=== PATIENT | female | born 1980 | race Caucasian/White ===

== ENCOUNTER 2016-08-24 12:04 | Emergency (ER) | payer BC | END 2016-08-24 15:30 | disposition left against medical advice (07) | LOC: D.ER 12:04 | DX: I10 Essential (primary) hypertension (principal) ==

== ENCOUNTER 2016-08-24 16:33 | Emergency (ER) | payer BC | END 2016-08-24 22:46 | disposition home or self-care (01) | LOC: D.ER 16:33 | DX: M54.12 Radiculopathy, cervical region (principal); I10 Essential (primary) hypertension; F17.200 Nicotine dependence, unspecified, uncomplicated ==

== ENCOUNTER 2016-09-07 18:00 | Emergency (ER) | payer BC | END 2016-09-07 18:13 | disposition left against medical advice (07) | LOC: D.ER 18:00 | DX: M54.2 Cervicalgia (principal); M54.12 Radiculopathy, cervical region; I10 Essential (primary) hypertension ==

== ENCOUNTER 2016-09-08 08:17 | Emergency (ER) | payer BC | END 2016-09-08 11:00 | disposition home or self-care (01) | LOC: D.ER 08:17 | DX: M54.12 Radiculopathy, cervical region (principal); M62.838 Other muscle spasm; I10 Essential (primary) hypertension; F17.200 Nicotine dependence, unspecified, uncomplicated ==

== ENCOUNTER 2016-09-24 13:08 | Emergency (ER) | payer BC | END 2016-09-24 17:15 | disposition left against medical advice (07) | LOC: D.ER 13:08 | DX: M25.562 Pain in left knee (principal) ==

== ENCOUNTER 2016-10-02 08:27 | Emergency (ER) | payer BC | END 2016-10-02 10:00 | disposition home or self-care (01) | LOC: D.ER 08:27 | DX: G89.29 Other chronic pain (principal); F17.200 Nicotine dependence, unspecified, uncomplicated ==

== ENCOUNTER 2016-12-08 08:55 | Emergency (ER) | payer BC ==
[2016-12-08 11:26] LABS: APPEARANCE HAZY (CLEAR); BILIRUBIN NEGATIVE (NEGATIVE); COLOR YELLOW (YELLOW); GLUCOSE NEGATIVE (NEGATIVE); KETONE NEGATIVE (NEGATIVE); LEUKOCYTE ESTERASE NEGATIVE (NEGATIVE); NITRITE NEGATIVE (NEGATIVE); PROTEIN NEGATIVE (NEGATIVE); UROBILINOGEN NORMAL (NORMAL)
[2016-12-08 11:30] LABS: UDS - AMPHET NEGATIVE QUAL (NEGATIVE); UDS - BARB NEGATIVE QUAL (NEGATIVE); UDS - BENZO NEGATIVE QUAL (NEGATIVE); UDS - COCAINE NEGATIVE QUAL (NEGATIVE); UDS - METH NEGATIVE QUAL (NEGATIVE); UDS - OPIATE POSITIVE QUAL (NEGATIVE); UDS - PCP NEGATIVE QUAL (NEGATIVE); UDS - THC NEGATIVE QUAL (NEGATIVE)
== END 2016-12-08 12:15 | disposition home or self-care (01) ==
LOC: D.ER 08:55
PROVIDERS: Physician Assistant
DX: J01.90 Acute sinusitis, unspecified (principal); S29.012A Strain of muscle and tendon of back wall of thorax, initial encounter; X58.XXXA Exposure to other specified factors, initial encounter; Y93.89 Activity, other specified; Y92.89 Other specified places as the place of occurrence of the external cause; F17.200 Nicotine dependence, unspecified, uncomplicated; M54.12 Radiculopathy, cervical region; I10 Essential (primary) hypertension

== ENCOUNTER 2017-01-06 13:32 | Emergency (ER) | payer BC ==
[2017-01-06 14:33] LABS: BASOPHILS 0.2 % (0-2); EOSINOPHILS 0.9 % (0-7); HEMATOCRIT 43.7 % (36.0-48.0); HEMOGLOBIN 14.5 g/dL (12-16); IMMATURE GRANULOCYTES 0.1 % (0-5); LYMPHOCYTES 21.9 % (15-50); MCH 30.5 pg (26.0-34.0); MCHC 33.2 g/dL (31.0-37.0); MCV 91.8 fL (80.0-100.0); MEAN PLATELET VOLUME 10.5 fL (7.4-10.4); MONOCYTES 2.8 % (2-11); NEUTROPHILS 74.1 % (40-80); PLATELET COUNT 292 10x3/uL (130-400); RBC 4.76 10x6/uL (4.00-5.40); RDW 13.3 % (11.5-14.5); WBC 8.1 10x3/uL (4.8-10.8)
[2017-01-06 15:23] LABS: HCG SERUM NEGATIVE (NEGATIVE)
== END 2017-01-06 15:20 | disposition left against medical advice (07) ==
LOC: D.ER 13:32
PROVIDERS: Emergency Medicine
DX: N93.9 Abnormal uterine and vaginal bleeding, unspecified (principal)

== ENCOUNTER 2017-01-07 10:16 | Emergency (ER) | payer BC ==
[2017-01-07 11:51] LABS: BASOPHILS 0.4 % (0-2); EOSINOPHILS 1.4 % (0-7); HEMATOCRIT 45.2 % (36.0-48.0); IMMATURE GRANULOCYTES 0.1 % (0-5); LYMPHOCYTES 19.8 % (15-50); MCHC 33.2 g/dL (31.0-37.0); MCV 93.4 fL (80.0-100.0); MEAN PLATELET VOLUME 10.7 fL (7.4-10.4); MONOCYTES 2.9 % (2-11); NEUTROPHILS 75.4 % (40-80); PLATELET COUNT 288 10x3/uL (130-400); RBC 4.84 10x6/uL (4.00-5.40); RDW 13.5 % (11.5-14.5); WBC 7.2 10x3/uL (4.8-10.8)
[2017-01-07 12:07] LABS: ALKALINE PHOSPHATASE 88 U/L (46-116); ALT (SGPT) 27 U/L (10-68); BILIRUBIN - TOTAL 0.13 mg/dL (0.2-1.3); CALC OSMOLALITY 277 mosm/kg (275-300); CALCIUM 9.6 mg/dL (8.5-10.1); CARBON DIOXIDE 29.8 mmol/L (21.0-32.0); CHLORIDE - SERUM 103 mmol/L (98-107); CREATININE - SERUM 0.9 mg/dL (0.6-1.3); GLUCOSE 92 mg/dL (74-106); POTASSIUM - SERUM 4.7 mmol/L (3.5-5.1); PROTEIN - SERUM 7.7 g/dL (6.4-8.2); SODIUM 140 mmol/L (136-145); UREA NITROGEN 9 mg/dL (7-18); eGFR NON AFRICAN AMERICAN 75 mL/min (90-120)
[2017-01-07 12:14] LABS: HCG - QUANTITATIVE (MATERNAL) 1 mIU/mL
== END 2017-01-07 14:35 | disposition home or self-care (01) ==
LOC: D.ER 10:16
PROVIDERS: Emergency Medicine
DX: N93.9 Abnormal uterine and vaginal bleeding, unspecified (principal); I10 Essential (primary) hypertension

== ENCOUNTER 2017-02-02 12:07 | Emergency (ER) | payer BC ==
[2017-02-02 13:03] LABS: BASOPHILS 0.3 % (0-2); EOSINOPHILS 1.5 % (0-7); HEMATOCRIT 39.7 % (36.0-48.0); HEMOGLOBIN 13.2 g/dL (12-16); IMMATURE GRANULOCYTES 0.3 % (0-5); LYMPHOCYTES 22.5 % (15-50); MCH 30.6 pg (26.0-34.0); MCHC 33.2 g/dL (31.0-37.0); MCV 91.9 fL (80.0-100.0); MEAN PLATELET VOLUME 10.3 fL (7.4-10.4); MONOCYTES 3.2 % (2-11); NEUTROPHILS 72.2 % (40-80); PLATELET COUNT 261 10x3/uL (130-400); RBC 4.32 10x6/uL (4.00-5.40); RDW 13.6 % (11.5-14.5); WBC 7.2 10x3/uL (4.8-10.8)
[2017-02-02 13:27] LABS: HCG SERUM NEGATIVE (NEGATIVE)
[2017-02-02 14:26] LABS: APPEARANCE HAZY (CLEAR); BILIRUBIN NEGATIVE (NEGATIVE); COLOR YELLOW (YELLOW); EPITHELIAL CELLS 0-5 /hpf (0-5); GLUCOSE NEGATIVE (NEGATIVE); KETONE NEGATIVE (NEGATIVE); LEUKOCYTE ESTERASE 1+ (NEGATIVE); NITRITE NEGATIVE (NEGATIVE); PROTEIN NEGATIVE (NEGATIVE); UROBILINOGEN NORMAL (NORMAL); WHITE CELLS - URINE 0-5 /hpf (0-5)
[2017-02-02 14:27] LABS: BACTERIA FEW /hpf (NONE SEEN); HYALINE CAST 0-5 /lpf (NONE SEEN); MUCUS <1+ /lpf (NONE SEEN); WAXY CAST RARE /lpf (NONE SEEN)
== END 2017-02-02 14:51 | disposition home or self-care (01) ==
LOC: D.ER 12:07
PROVIDERS: Emergency Medicine
DX: N94.6 Dysmenorrhea, unspecified (principal); R10.2 Pelvic and perineal pain; I10 Essential (primary) hypertension; M54.12 Radiculopathy, cervical region; F17.200 Nicotine dependence, unspecified, uncomplicated

== ENCOUNTER 2017-02-04 12:52 | Emergency (ER) | payer BC | END 2017-02-04 15:15 | disposition home or self-care (01) | LOC: D.ER 12:52 | DX: N94.6 Dysmenorrhea, unspecified (principal); I10 Essential (primary) hypertension; F17.200 Nicotine dependence, unspecified, uncomplicated ==

== ENCOUNTER 2017-02-09 12:02 | Emergency (ER) | payer BC ==
[2017-02-09 13:00] LABS: BASOPHILS 0.2 % (0-2); EOSINOPHILS 1.2 % (0-7); HEMATOCRIT 40.7 % (36.0-48.0); HEMOGLOBIN 13.6 g/dL (12-16); IMMATURE GRANULOCYTES 0.3 % (0-5); LYMPHOCYTES 15.9 % (15-50); MCH 30.9 pg (26.0-34.0); MCHC 33.4 g/dL (31.0-37.0); MCV 92.5 fL (80.0-100.0); MEAN PLATELET VOLUME 10.3 fL (7.4-10.4); MONOCYTES 3.5 % (2-11); NEUTROPHILS 78.9 % (40-80); RDW 14.1 % (11.5-14.5); WBC 9.7 10x3/uL (4.8-10.8)
[2017-02-09 13:01] LABS: PLATELET COUNT 318 10x3/uL (130-400)
[2017-02-09 13:23] LABS: ALBUMIN 3.7 g/dL (3.4-5.0); ALKALINE PHOSPHATASE 77 U/L (46-116); ALT (SGPT) 21 U/L (10-68); BILIRUBIN - TOTAL 0.21 mg/dL (0.2-1.3); CALC OSMOLALITY 269 mosm/kg (275-300); CALCIUM 8.8 mg/dL (8.5-10.1); CARBON DIOXIDE 22.9 mmol/L (21.0-32.0); CHLORIDE - SERUM 103 mmol/L (98-107); CREATININE - SERUM 0.7 mg/dL (0.6-1.3); GLUCOSE 94 mg/dL (74-106); POTASSIUM - SERUM 4.2 mmol/L (3.5-5.1); PROTEIN - SERUM 6.9 g/dL (6.4-8.2); SODIUM 135 mmol/L (136-145); UREA NITROGEN 12 mg/dL (7-18); eGFR NON AFRICAN AMERICAN > 90 mL/min (90-120)
[2017-02-09 13:27] LABS: HCG SERUM NEGATIVE (NEGATIVE)
[2017-02-09 15:08] LABS: APPEARANCE HAZY (CLEAR); BILIRUBIN NEGATIVE (NEGATIVE); COLOR YELLOW (YELLOW); GLUCOSE NEGATIVE (NEGATIVE); KETONE NEGATIVE (NEGATIVE); LEUKOCYTE ESTERASE TRACE (NEGATIVE); NITRITE NEGATIVE (NEGATIVE); PROTEIN TRACE mg/dL (NEGATIVE); SPECIFIC GRAVITY 1.015 (1.005-1.020); UROBILINOGEN NORMAL (NORMAL)
[2017-02-09 15:10] LABS: BACTERIA MODERATE /hpf (NONE SEEN); MUCUS <1+ /lpf (NONE SEEN); RED CELLS - URINE 0-5 /hpf (0-5); WHITE CELLS - URINE 0-5 /hpf (0-5)
== END 2017-02-09 16:16 | disposition home or self-care (01) ==
LOC: D.ER 12:02
PROVIDERS: Emergency Medicine
DX: N94.6 Dysmenorrhea, unspecified (principal); I10 Essential (primary) hypertension; F17.200 Nicotine dependence, unspecified, uncomplicated

== ENCOUNTER 2017-02-16 08:01 | Emergency (ER) | payer BC | END 2017-02-16 08:40 | disposition home or self-care (01) | LOC: D.ER 08:01 | DX: B02.9 Zoster without complications (principal) ==

== ENCOUNTER 2017-04-07 10:39 | Emergency (ER) | payer BC | END 2017-04-07 12:47 | disposition home or self-care (01) | LOC: D.ER 10:39 | DX: M62.838 Other muscle spasm (principal); B02.9 Zoster without complications; I10 Essential (primary) hypertension ==

== ENCOUNTER 2017-04-12 08:01 | Emergency (ER) | payer BC | END 2017-04-12 11:00 | disposition home or self-care (01) | LOC: D.ER 08:01 | DX: S99.922A Unspecified injury of left foot, initial encounter (principal); W20.8XXA Other cause of strike by thrown, projected or falling object, initial encounter; Y93.89 Activity, other specified; Y92.89 Other specified places as the place of occurrence of the external cause; F17.200 Nicotine dependence, unspecified, uncomplicated; I10 Essential (primary) hypertension ==

== ENCOUNTER 2017-05-02 20:19 | Emergency (ER) | payer BC | END 2017-05-02 22:31 | disposition home or self-care (01) | LOC: D.ER 20:19 | DX: M54.12 Radiculopathy, cervical region (principal); F17.200 Nicotine dependence, unspecified, uncomplicated ==

== ENCOUNTER 2017-11-29 09:12 | Emergency (ER) | payer BC | END 2017-11-29 15:18 | disposition left against medical advice (07) | LOC: D.ER 09:12 | DX: M25.562 Pain in left knee (principal) ==

== ENCOUNTER 2019-03-09 09:09 | Emergency (ER) | payer SELFPAY ==
[~2019-03-09] VITALS: Ht 167.6 cm; Wt 79.5 kg
[2019-03-09 09:13] VITALS: Ht 167.6 cm; Wt 79.5 kg
[2019-03-09] MEDS ORDERED: LISINOPRIL40 MG PO (09:14)
[2019-03-09] MEDS ORDERED: MEDROL DOSE PACK4 MG PO (09:50)
[2019-03-09] MEDS ORDERED: ATARAX 25 MG TA25 MG PO (09:50)
[2019-03-09 10:19] VITALS: BP 147/105
== END 2019-03-09 10:19 | disposition home or self-care (01) ==
LOC: D.ER 09:09
DX: T63.441A Toxic effect of venom of bees, accidental (unintentional), initial encounter (principal); Y92.89 Other specified places as the place of occurrence of the external cause

== ENCOUNTER 2019-03-23 10:33 | Emergency (ER) | payer SELFPAY ==
[~2019-03-23] VITALS: Ht 167.6 cm; Wt 77.3 kg
[~2019-03-23 10:33] MED LIST: ATARAX 25 MG TA25 MG PO; LISINOPRIL40 MG PO; MEDROL DOSE PACK4 MG PO
[2019-03-23 10:49] VITALS: Ht 167.6 cm; Wt 77.3 kg
[2019-03-23] MEDS ORDERED: CATAPRES0.1 MG PO (10:50)
[2019-03-23] MEDS ORDERED: HYDROCODON-ACE1 EAC7 PO (11:56)
[2019-03-23 12:13] VITALS: BP 140/110
== END 2019-03-23 12:14 | disposition home or self-care (01) ==
LOC: D.ER 10:33
DX: S30.0XXA Contusion of lower back and pelvis, initial encounter (principal); W18.30XA Fall on same level, unspecified, initial encounter; Y93.89 Activity, other specified; Y92.019 Unspecified place in single-family (private) house as the place of occurrence of the external cause

== ENCOUNTER 2019-04-22 13:41 | Emergency (ER) | payer SELFPAY ==
[~2019-04-22] VITALS: Ht 167.6 cm; Wt 79.5 kg
[~2019-04-22 13:41] MED LIST changes: +CATAPRES0.1 MG PO; +HYDROCODON-ACE1 EAC7 PO
[2019-04-22 13:57] VITALS: Ht 167.6 cm; Wt 79.5 kg
[2019-04-22] MEDS ORDERED: VISTARIL25 MG PO (15:58)
[2019-04-22] MEDS ORDERED: PREDNISONE10 MG PO (15:58)
[2019-04-22] MEDS ORDERED: ZOVIRAX800 MG PO (15:58)
[2019-04-22 16:07] VITALS: BP 148/79
== END 2019-04-22 16:08 | disposition home or self-care (01) ==
LOC: D.ER 13:41
DX: L25.9 Unspecified contact dermatitis, unspecified cause (principal)